=== PATIENT | male | born 1990 | race Asian ===

== ENCOUNTER 2020-12-12 06:02 | Inpatient (IN) | payer BC, SELFPAY ==
[~2020-12-12] VITALS: Ht 177.8 cm; Wt 83.5 kg
[2020-12-12 06:05] VITALS: BP_SYST 137
--- NOTE | 2020-12-12 06:05 | NUR ---
Placed in room [address] recording monitor, blood pressure machine and pulse oximeter. To gown for exam. Side rails up. Report given to VIGNESH GLEZ.
--- NOTE | 2020-12-12 06:10 | NUR ---
PT BIB ALS FROM HOME C/O OVERDOSE ON FENTANYL. PT WAS FOUND UNRESPONSIVE, APNEIC IN BED BY . PT WAS GIVEN NARCAN X2 INTRANASAL AND NARCAN 2 MORE TIMES IVP BY MEDICS WITH POSITIVE RESPONSE, INCREASED LOC/RR. PT HAS A HX OF DRUG USE. 1 DIRTY SYRINGE FOUND UNDER PATIENT, NO NEEDLE. ON ARRIVAL TO ED PT OBSERVED TO BE RESPONSIVE TO VERBAL STIMULI, LETHARGIC, DROOLING, GARBLED SPEECH, 98% RA.
--- NOTE | 2020-12-12 06:15 | NUR ---
ER at bedside examining patient.
--- NOTE | 2020-12-12 06:23 | NUR ---
Called Poison Control at [phone] and spoke with MONIKA. Per recommendations:Observe pt 4-6hrs from the last dose of Narcan .Can be clear from toxicology if pt stable after 4-6 hrs observation from the last dose of Narcan . Dr. MEREDITH notified. Will continue to monitor patient.
[2020-12-12] MEDS ORDERED: NALOXONE HCL 2 MG/2 ML SYR ONE ×2 (06:27→06:29)
--- NOTE | 2020-12-12 06:30 | NUR ---
KHARI FROM DR. MEREDITH FOR 2MG NARCAN IVP.
--- NOTE | 2020-12-12 07:04 | NUR ---
Report given to Kathrine GLEZ.
--- NOTE | 2020-12-12 07:10 | NUR ---
PT IS DROWSY BUT EASILY ARROUSABLE, AAOX3, V/S STABLE, NO NOTED DISTRESS
--- NOTE | 2020-12-12 07:15 | NUR ---
PORTABLE X-RAY AT THE BEDSIDE
--- NOTE | 2020-12-12 07:18 | NUR ---
LAB AT THE BEDSIDE FOR BLOOD DRAW
[2020-12-12 07:33] LABS: BASOPHILS # (AUTO) 0.1 K/uL (0.0-0.2); BASOPHILS % (AUTO) 0.4 % (0.0-2.0); EOSINOPHILS # (AUTO) 0.2 K/uL (0.0-0.4); EOSINOPHILS % (AUTO) 1.4 % (0.0-4.0); HEMOGLOBIN 16.7 g/dL (14.0-18.0); LYMPHOCYTES # (AUTO) 1.7 K/uL (1.0-5.5); MEAN CORPUSCULAR HEMOGLOBIN 28 pg (27-31); MEAN CORPUSCULAR HGB CONC 33 % (32-36); MEAN CORPUSCULAR VOLUME 85 fL (79.0-98.0); MONOCYTES # (AUTO) 0.8 K/uL (0.0-1.0); MONOCYTES % (AUTO) 5.2 % (1.7-9.3); NEUTROPHILS # (AUTO) 11.6 K/uL (1.8-7.7); PLATELET COUNT (AUTO) 290 K/uL (130-430); RED BLOOD CELL COUNT(AUTO) 6.02 MIL/uL (4.2-6.2); RED CELL DISTRIBUTION WIDTH 16.2 % (9.0-15.0); WHITE BLOOD COUNT (AUTO) 14.4 K/uL (4.8-10.8)
--- NOTE | 2020-12-12 07:42 | NUR ---
Patient transported to radiology via GUENEY, accompanied by STAFF.
[2020-12-12 07:46] LABS: ANION GAP 11 (5-15); CALCIUM 9.1 mg/dL (8.4-11.0); CHLORIDE 104 mmol/L (98-107); CREATININE 1.16 mg/dL (0.55-1.30); GLUCOSE 107 mg/dL (70-99); POTASSIUM 4.2 mmol/L (3.5-5.1); SODIUM SERUM 142 mmol/L (136-145); UREA NITROGEN, BLOOD 12 mg/dL (8-21)
[2020-12-12 07:47] LABS: INR 1.2 (0.80-1.20); PROTHROMBIN TIME 12.7 SECS (9.5-12.5)
[2020-12-12 07:49] LABS: GFR AFRICAN AMERICAN 95 mL/min (>90)
[2020-12-12 07:57] LABS: C-REACTIVE PROTEIN QUANT < 0.2 mg/dL (0-0.5)
[2020-12-12 08:01] LABS: ALANINE AMINOTRANSFERASE 92 U/L (12-78); ALBUMIN 3.6 g/dL (3.4-4.8); ASPARTATE AMINOTRANSFERASE 49 U/L (10-37); TOTAL BILIRUBIN 0.5 mg/dL (0.0-1.0)
[2020-12-12 08:07] LABS: ACETAMINOPHEN < 1 ug/mL (1-30); ALCOHOL, BLOOD < 3 mg/dL (<10)
[2020-12-12 08:23] LABS: ACETONE, SERUM NEGATIVE (NEGATIVE)
--- NOTE | 2020-12-12 08:26 | NUR ---
Pt asleep in [facility] at bedside
[2020-12-12 08:47] LABS: CKMB RELATIVE INDEX 0.6 (0.0-2.9); CREATINE KINASE MB 3.9 ng/mL (0-3.6)
[2020-12-12] MEDS ORDERED: D5/0.45 NS 1,000 ML IV SCH (09:00)
--- NOTE | 2020-12-12 09:06 | NUR ---
Patient will be admitted to care of [facility]. Admitted to Tele unit. Will go to room 114. Belongings list completed. Complete and up to date summary report printed. SBAR report to be given at bedside with opportunity for questions.
--- NOTE | 2020-12-12 09:25 | NUR ---
ADMISSION NOTE Received patient from ER via ar, received report from Concepcion GLEZ. Patient admitted with diagnosis of Drug overdose. Patient oriented to hospital routine, call light, toileting and safety-patient verbalized understanding.
--- NOTE | 2020-12-12 09:44 | NUR ---
CONSULTATION: REASON FOR CONSULT: OVERDOSE CONSULTING PHYSICIAN: LOIS ORDERED BY: CHEY ABREU IS AWARE OF THE CONSULT AND IS HERE IN THE HOSPITAL
--- NOTE | 2020-12-12 09:45 | NUR ---
Seen and examined by Dr. Esparza and Dr. Perdue.
--- NOTE | 2020-12-12 09:48 | NUR ---
CONSULTATION: REASON FOR CONSULT: PSYCHOSIS CONSULTING PHYSICIAN: WILNER ORDERED BY: CHEY SPOKE WITH ROBERT [phone]
[2020-12-12 09:51] VITALS: BP_SYST 140
--- NOTE | 2020-12-12 10:32 | NUR ---
Spoke to Dr. Castano informed regarding consult.
[2020-12-12 11:22] VITALS: BP_SYST 129; BP_SYST 151
--- NOTE | 2020-12-12 11:42 | NUR ---
Poison control call back Sera and update regarding patient , sleeping arousable answer question correctly vitals sign stable.
--- NOTE | 2020-12-12 12:49 | NUR ---
Patient had lunch tolerates well, cooperative , at the bedside
[2020-12-12 13:24] LABS: BILIRUBIN,URINE NEGATIVE (NEGATIVE); BLOOD, URINE NEGATIVE (NEGATIVE); CLARITY/URINE CLEAR (CLEAR); COLOR,URINE YELLOW (YELLOW); GLUCOSE,URINE NEGATIVE (NEGATIVE); KETONES,URINE NEGATIVE (NEGATIVE); LEUKOCYTE ESTERASE ,URINE NEGATIVE (NEGATIVE); NITRITE, URINE NEGATIVE (NEGATIVE); PH,URINE 7.5 (5.0-8.0); PROTEIN URINE 1+ (NEGATIVE)
[2020-12-12 13:58] LABS: BARBITURATE, URINE NEGATIVE (NEG <=200); BENZODIAZEPINE, URINE NEGATIVE (NEG <=150); METHAMPHETAMINES SCREEN,URINE POSITIVE (NEG <=500); URINE AMPHETAMINE POSITIVE (NEG <=500); URINE METHADONE POSITIVE (NEG <=200)
[2020-12-12 13:59] LABS: CANNABINOID, URINE NEGATIVE (NEG <=50); COCAINE, URINE POSITIVE (NEG <=150); OPIATE, URINE POSITIVE (NEG <=100); PHENCYCLIDINE SCREEN,URINE NEGATIVE (NEG <=25); UR TRICYCLIC ANTIDEPRESSANTS NEGATIVE (NEG <=300); URINE OXYCODONE SCREEN NEGATIVE (NEG <=100); URINE PROPOXYPHENE SCREEN NEGATIVE (NEG <=300)
[2020-12-12 14:05] LABS: BACTERIA,URINE None Seen /HPF (None Seen); MUCUS,URINE 4+ /LPF (None Seen); RBC,URINE 0-3 /HPF (0-3); WBC,URINE 0-3 /HPF (0-3)
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
--- NOTE | 2020-12-12 15:45 | NUR ---
Patient sleeping but arousable answers question telemetry NSR, denies any pain.
--- NOTE | 2020-12-12 16:16 | NUR ---
ATTENDING MD DR GUERRIER WAS CALLED, RE: TO INFORM PT WILL GO AMA AT 1800. SPOKE TO CORNELIUS.
[2020-12-12 16:28] VITALS: BP_SYST 135; BP_SYST 142
--- NOTE | 2020-12-12 16:29 | NUR ---
Spoke to Dr. Perdue and mother of the patient Myles Davis , patient verbalized he wants to go home against medical advise.
--- NOTE | 2020-12-12 16:37 | NUR ---
Repaged Dr. Perdue for anxiety
[2020-12-12] MEDS: ALPRAZolam 0.25 MG TABLET PO PRN ×2 (17:08→23:13)
--- NOTE | 2020-12-12 17:10 | NUR ---
Paged Dr. Perdue for critical lab result troponin , denies any chest pain telemetry NSR, mild anxiety , generalized bodyache.
[2020-12-12 20:00] VITALS: BP_SYST 137
[2020-12-12] MEDS ORDERED: NALOXONE HCL 0.4 MG/ML AMP (NARCAN) IVP PRN (22:00)
[2020-12-12] MEDS ORDERED: MORPHINE 2 MG/ML INJ. SYRINGE IVP PRN (22:00)
[2020-12-12] MEDS ORDERED: ACETAMINOPHEN 325 MG TABLET PO PRN (22:00)
--- NOTE | 2020-12-12 22:00 | NUR ---
HIGH ALERT NOTE: Called Dr. GUERRIER back and identified within the medical roster to verify physician authenticity.
--- NOTE | 2020-12-12 22:00 | NUR ---
PAGED DR. GUERRIER REGARDING PAIN PATIENT COMPLAINING OF "MILD HEADACHE" PAIN AND "8/[address] GUERRIER NOTIFIED - ORDERED MORPHINE 2MG Q4H PRN SEVERE PAIN, TYLENOL 650MG Q6H MILD PAIN.
[2020-12-13] VITALS: BP_SYST 132
--- NOTE | 2020-12-13 | NUR ---
ROUNDING NOTES Patient resting in bed - no s/s pain or distress noted. Respirations even and unlabored - head of bed elevated. IV site patent - no s/s redness, infection, or infiltration. Bed locked and in lowest position. Call light within reach. at bedside.
[2020-12-13 08:03] LABS: ALBUMIN 3.2 g/dL (3.4-4.8); CALCIUM 8.7 mg/dL (8.4-11.0); CREATININE 0.98 mg/dL (0.55-1.30); POTASSIUM 4.2 mmol/L (3.5-5.1); TOTAL BILIRUBIN 0.5 mg/dL (0.0-1.0)
[2020-12-13 08:15] VITALS: BP_SYST 134
[2020-12-13] MEDS ORDERED: NEU300 PO (09:44)
[2020-12-13] MEDS ORDERED: GABAPENTIN 300 MG CAPSULE PO ONE (10:00)
[2020-12-13 11:49] VITALS: BP_SYST 144
[2020-12-13 12:15] VITALS: BP_SYST 144
--- NOTE | 2020-12-13 13:01 | NUR ---
Patient given information on local detox programs and encourged to F/U with a program as soon as possible.
[2020-12-13] MEDS ORDERED: GABAPENTIN 300 MG CAPSULE PO SCH (15:00)
== END 2020-12-13 13:00 | disposition home or self-care (01) | DRG 917 ==
LOC: SED 06:02 → STU 08:55
PROVIDERS: ADMIT Internal Medicine Cardiovascular Disease; ATTEND Internal Medicine Cardiovascular Disease
DX: T40.411A Poisoning by fentanyl or fentanyl analogs, accidental (unintentional), initial encounter (principal); G93.41 Metabolic encephalopathy; I24.8 Other forms of acute ischemic heart disease; D72.829 Elevated white blood cell count, unspecified; F29 Unspecified psychosis not due to a substance or known physiological condition; Z20.822 Contact with and (suspected) exposure to COVID-19; Y92.89 Other specified places as the place of occurrence of the external cause
CPT/HCPCS: 36415; 70450-TC; 71045; 76376; 80053; 80307; 81000; 82009; 82140; 82550; 82553; 83605; 83880; 84484; 85025; 85610-TC; 85730-TC; 86140; 93005; 93306; 96374; 99285; G0378; G0480; G0481; G0482; J2310

== ENCOUNTER 2021-05-24 00:13 | Inpatient (IN) | payer BC, SELFPAY ==
[~2021-05-24] VITALS: Ht 177.8 cm; Wt 81.6 kg
[~2021-05-24 00:13] MED LIST: NEU300 PO
[2021-05-24 00:23] VITALS: BP_SYST 108
--- NOTE | 2021-05-24 00:49 | NUR ---
PT BIB [facility] AMBULANCE FOR BEING NON RESPONSIVE AND POSSIBLE OVERDOSE. PT HAS A HX OF PREVIOUS FENTANYL OD IN NOVEMBER. PT IS A&OX1. PT IS NOT ALERT OR ORIENTED BUT IS ABLE TO REPOND TO PAIN. PT IS SLOWLY GETTING MORE AWAKE.CAME WITH 18G TO LEFT AC. ON SCENE MEDICS STATED PARENTS GAVE 4 OF NARCAN IM AND MEDICS GAVE 2 OF NARCON THRU IV. PT ARRIVED WITH A BOTTLE OF "KRATOM" FILLED WITH XANAX. PTs VSS. SLEEPING NOW.
--- NOTE | 2021-05-24 01:00 | NUR ---
ER Dr. ARREDONDO at bedside examining patient.
[2021-05-24 01:19] LABS: ANION GAP 13 (5-15); CALCIUM 10.4 mg/dL (8.4-11.0); CHLORIDE 99 mmol/L (98-107); GLUCOSE 115 mg/dL (70-99); POTASSIUM 4.4 mmol/L (3.5-5.1); SODIUM SERUM 135 mmol/L (136-145); UREA NITROGEN, BLOOD 23 mg/dL (8-21)
[2021-05-24 01:23] LABS: BASOPHILS # (AUTO) 0.3 K/uL (0.0-0.2); BASOPHILS % (AUTO) 3.2 % (0.0-2.0); EOSINOPHILS # (AUTO) 0.6 K/uL (0.0-0.4); EOSINOPHILS % (AUTO) 5.4 % (0.0-4.0); HEMATOCRIT 54.6 % (36-54); HEMOGLOBIN 18.5 g/dL (14.0-18.0); LYMPHOCYTES # (AUTO) 0.9 K/uL (1.0-5.5); LYMPHOCYTES % (AUTO) 8.1 % (20.5-51.5); MEAN CORPUSCULAR HEMOGLOBIN 29 pg (27-31); MEAN CORPUSCULAR HGB CONC 34 % (32-36); MEAN CORPUSCULAR VOLUME 86 fL (79.0-98.0); MONOCYTES # (AUTO) 0.3 K/uL (0.0-1.0); MONOCYTES % (AUTO) 3.2 % (1.7-9.3); NEUTROPHILS # (AUTO) 8.4 K/uL (1.8-7.7); NEUTROPHILS % (AUTO) 80.1 % (40.0-70.0); PLATELET COUNT (AUTO) 324 K/uL (130-430); RED BLOOD CELL COUNT(AUTO) 6.38 MIL/uL (4.2-6.2); RED CELL DISTRIBUTION WIDTH 13.9 % (9.0-15.0); WHITE BLOOD COUNT (AUTO) 10.5 K/uL (4.8-10.8)
[2021-05-24 01:25] LABS: ALANINE AMINOTRANSFERASE 80 U/L (12-78); ALBUMIN 4.4 g/dL (3.4-4.8); ASPARTATE AMINOTRANSFERASE 19 U/L (10-37)
[2021-05-24 01:27] LABS: ALCOHOL, BLOOD < 3 mg/dL (<10); GFR AFRICAN AMERICAN 91 mL/min (>90)
[2021-05-24 01:28] LABS: ACETAMINOPHEN < 1 ug/mL (1-30)
--- NOTE | 2021-05-24 01:40 | NUR ---
MOTHER AT BEDSIDE
--- NOTE | 2021-05-24 01:45 | NUR ---
Called Poison Control at [phone] and spoke with JAQUAN. Per recommendations: MONITOR RESPIRATIONS AND VITALS SIGNS. Dr. ARREDONDO notified. Will continue to monitor patient.
--- NOTE | 2021-05-24 02:11 | NUR ---
PT SLEEPING IN BED.VSS. NO SIGNS OF DISTRESS NOTED
--- NOTE | 2021-05-24 02:53 | NUR ---
# 16 FR Noel catheter with use of sterile technique. Immediate return of 100 cc DARK YELLOW urine noted. Bedside drainage bag placed below level of bladder. Urine sample collected and sent to lab. Pt tolerated procedure .
[2021-05-24 03:29] LABS: CANNABINOID, URINE POSITIVE (NEG <=50); URINE AMPHETAMINE POSITIVE (NEG <=500)
[2021-05-24 03:30] LABS: BARBITURATE, URINE NEGATIVE (NEG <=200); OPIATE, URINE NEGATIVE (NEG <=100); PHENCYCLIDINE SCREEN,URINE NEGATIVE (NEG <=25); URINE OXYCODONE SCREEN NEGATIVE (NEG <=100); URINE PROPOXYPHENE SCREEN NEGATIVE (NEG <=300)
[2021-05-24 03:31] LABS: BENZODIAZEPINE, URINE POSITIVE (NEG <=150); COCAINE, URINE NEGATIVE (NEG <=150); UR TRICYCLIC ANTIDEPRESSANTS POSITIVE (NEG <=300)
[2021-05-24 03:32] LABS: METHAMPHETAMINES SCREEN,URINE POSITIVE (NEG <=500); URINE METHADONE NEGATIVE (NEG <=200)
[2021-05-24] MEDS ORDERED: NACL 0.9% 1,000 ML IV ONE (04:15)
--- NOTE | 2021-05-24 05:55 | NUR ---
PT IS FULL CODE
--- NOTE | 2021-05-24 05:56 | NUR ---
MOTHER WILL TRY AND FIND MED LIST
--- NOTE | 2021-05-24 06:01 | NUR ---
Patient will be admitted to care of DR. BRANDT. Admitted to TELE unit. Will go to room TBD. Belongings list completed. Complete and up to date summary report printed. SBAR report to be given at bedside with opportunity for questions.
--- NOTE | 2021-05-24 06:17 | NUR ---
Note avinash in EDM - 05/24/21 at 0620 by OMAREDGS PT GIVEN THE D5 1/2 NS AT 100ML/HR. UNABLE TO CHART ON MAR
[2021-05-24] MEDS: D5/0.45 NS 1,000 ML IV SCH ×2 (06:19→16:00)
[2021-05-24] MEDS ORDERED: OLAN5TAB3 PO (08:07)
[2021-05-24] MEDS ORDERED: TRAZ-251 PO (08:07)
[2021-05-24] MEDS ORDERED: OXCA150T5 PO (08:07)
[2021-05-24] MEDS ORDERED: QUET50TA15 PO (08:07)
--- NOTE | 2021-05-24 08:08 | NUR ---
Medication reconciliation completed with information provided by patient's family. Any prior medication reconciliation on file was reviewed and corrected.
--- NOTE | 2021-05-24 08:18 | NUR ---
Report given to NEWTON Louis and endorse care of patient.
--- NOTE | 2021-05-24 08:20 | NUR ---
[place] of care received, pt resting in bed, respirations even and unlabored.
--- NOTE | 2021-05-24 09:35 | NUR ---
Emptied patients fully catheter 1200 ml yellow clear urine noted
--- NOTE | 2021-05-24 09:57 | NUR ---
Patient requesting to remove his urinary catheter, urinary catheter removed at this time, no s/s of bleeding noted.
--- NOTE | 2021-05-24 10:11 | NUR ---
Assisted patient to restroom. Gait is unsteady and patient is cooperative with assistance.
--- NOTE | 2021-05-24 10:20 | NUR ---
Phone call received by Neelima (poison control ), who was notified, pt VSS, pt awake at this time, skin pink and warm, cap refill <3.
--- NOTE | 2021-05-24 11:55 | NUR ---
Dr Galvez evaluating patient at bedside
[2021-05-24] MEDS ORDERED: ONDANSETRON HCL 4 MG/2 ML VIAL IVP PRN (12:00)
[2021-05-24] MEDS ORDERED: HYDROcodone/ACETAMIN 5-325 MG TAB (NORCO/ VICODIN) PO PRN (12:00)
[2021-05-24] MEDS ORDERED: NALOXONE HCL 0.4 MG/ML AMP (NARCAN) IVP PRN ×2 (12:00)
[2021-05-24] MEDS ORDERED: LORazepam 2 MG/ML VIAL IVP PRN (12:00)
[2021-05-24] MEDS ORDERED: HYDROcodone/ACETAMIN 10-325 MG TAB PO PRN (12:00)
[2021-05-24] MEDS ORDERED: ACETAMINOPHEN 325 MG TABLET PO PRN ×2 (12:00→12:15)
--- NOTE | 2021-05-24 12:55 | NUR ---
lunch tray given to patient, mother at bedside feeding patient,will cont to monitor.
[2021-05-24] MEDS ORDERED: NORMAL SALINE 5 ML DISP.SYRIN IVF SCH ×2 (14:00)
[2021-05-24] MEDS ORDERED: GABAPENTIN 300 MG CAPSULE PO SCH (15:00)
--- NOTE | 2021-05-24 15:39 | NUR ---
Pt medicated as ordered, VSS, respirations even and unlabored , no s/s of distress.
--- NOTE | 2021-05-24 15:43 | NUR ---
PT at bedside
--- NOTE | 2021-05-24 16:30 | NUR ---
Pt pulled IV out, Pt states he does not want to be in the hospital anymore, patient coursing at this time, states " I am doing okay and he does not need to wait for any doctor "pt ambulatory, respirations even and unlabored, cap refill <3.
--- NOTE | 2021-05-24 16:40 | NUR ---
Dr Galvez notified patient would like to go home and pulled his IV out, per Dr Galvez patient will be discharge home, pt's brother at bedside, pt's mother on the way to pick patient.
--- NOTE | 2021-05-24 17:16 | NUR ---
Dr Galvez is giving a verbal discharge order at this time.
[2021-05-24 17:27] VITALS: BP_SYST 133
--- NOTE | 2021-05-24 17:42 | NUR ---
Discharge Discharge order received from MD by ER nurse. Patient is admitted to telemetry but is on hold in the ER. Discharge papers completed. Unable to re- take vitals as patient is already in the car with his mother in the parking lot. Instruction given to mother instead re S/S of respiratory depression, community resources and follow up with PCP. Mother verbalized understanding. IV access removed by NEWTON Louis
[2021-05-24 17:50] VITALS: BP_SYST 133
--- NOTE | 2021-05-24 17:51 | NUR ---
Patient given written and verbal discharge instructions and verbalizes understanding, given by Alexandria GLEZ , Alexandria GLEZ discussed with patient the results and treatment provided. Patient in stable condition. ID arm band removed. IV catheter removed intact and dressing applied, no active bleeding. No Rx given. Patient educated on pain management and to follow up with PMD. Pain Scale 0/10 . Opportunity for questions provided and answered. Medication side effect fact sheet provided.family at bedside.
[2021-05-24] MEDS ORDERED: traZODone HCL 50 MG TABLET (DESYREL) PO SCH (21:00)
[2021-05-24] MEDS ORDERED: OXcarbazepine 150 MG TABLET(TRILEPTAL) PO SCH (21:00)
[2021-05-24] MEDS ORDERED: NON-FORMULARY MEDICATION (Quetiapine Fumarate (Seroquel Xr) 50 MG) PO SCH (21:00)
[2021-05-24] MEDS ORDERED: OLANZapine 5 MG TABLET PO SCH (21:00)
== END 2021-05-24 17:42 | disposition home or self-care (01) | DRG 948 ==
LOC: SED 00:13 → STU 05:57
PROVIDERS: ADMIT Preventive Medicine Preventive Medicine/Occupational Environmental Medicine; ATTEND Preventive Medicine Preventive Medicine/Occupational Environmental Medicine
DX: R41.82 Altered mental status, unspecified (principal); E87.1 Hypo-osmolality and hyponatremia; D75.1 Secondary polycythemia; F32.A Depression, unspecified; R73.9 Hyperglycemia, unspecified; R74.01 Elevation of levels of liver transaminase levels; Z20.822 Contact with and (suspected) exposure to COVID-19; T40.2X5A Adverse effect of other opioids, initial encounter; Y92.89 Other specified places as the place of occurrence of the external cause
CPT/HCPCS: 36415; 80053; 80307; 82550; 84484; 85025; 93005; 96360; 96361; 97116-GP; 99291; G0378; G0480; G0481; G0482

== ENCOUNTER 2021-05-27 14:35 | Emergency (ER) | payer BC, SELFPAY ==
[~2021-05-27] VITALS: Ht 167.6 cm; Wt 81.6 kg
[~2021-05-27 14:35] MED LIST changes: +OLAN5TAB3 PO; +OXCA150T5 PO; +QUET50TA15 PO; +TRAZ-251 PO
[2021-05-27 14:38] VITALS: BP_SYST 130
[2021-05-27] MEDS ORDERED: ONDANSETRON HCL 4 MG/2 ML VIAL IVP ONE (14:45)
--- NOTE | 2021-05-27 15:08 | NUR ---
PT AROUSABLE TO VERBAL COMMANDS REFUSES BLOOD TO BE DRAWN BY INTENSIVE CARE UNIT NURSE CN AWARE
--- NOTE | 2021-05-27 15:22 | NUR ---
blood to lab
[2021-05-27 15:32] LABS: BASOPHILS % (AUTO) 0.5 % (0.0-2.0); EOSINOPHILS # (AUTO) 0.1 K/uL (0.0-0.4); EOSINOPHILS % (AUTO) 0.7 % (0.0-4.0); HEMATOCRIT 53.7 % (36-54); HEMOGLOBIN 18.6 g/dL (14.0-18.0); LYMPHOCYTES # (AUTO) 1.7 K/uL (1.0-5.5); MEAN CORPUSCULAR HEMOGLOBIN 29 pg (27-31); MEAN CORPUSCULAR HGB CONC 35 % (32-36); MEAN CORPUSCULAR VOLUME 85 fL (79.0-98.0); MONOCYTES # (AUTO) 0.7 K/uL (0.0-1.0); MONOCYTES % (AUTO) 7.2 % (1.7-9.3); NEUTROPHILS % (AUTO) 73.6 % (40.0-70.0); PLATELET COUNT (AUTO) 325 K/uL (130-430); RED BLOOD CELL COUNT(AUTO) 6.36 MIL/uL (4.2-6.2); RED CELL DISTRIBUTION WIDTH 13.6 % (9.0-15.0); WHITE BLOOD COUNT (AUTO) 9.5 K/uL (4.8-10.8)
[2021-05-27 15:49] LABS: ANION GAP 13 (5-15); CHLORIDE 100 mmol/L (98-107); CREATININE 1.05 mg/dL (0.55-1.30); GLUCOSE 93 mg/dL (70-99); POTASSIUM 4.2 mmol/L (3.5-5.1); SODIUM SERUM 138 mmol/L (136-145); UREA NITROGEN, BLOOD 17 mg/dL (8-21)
[2021-05-27 15:50] LABS: GFR AFRICAN AMERICAN 107 mL/min (>90)
[2021-05-27 15:55] LABS: ALANINE AMINOTRANSFERASE 102 U/L (12-78); ALBUMIN 4.5 g/dL (3.4-4.8); ASPARTATE AMINOTRANSFERASE 31 U/L (10-37); TOTAL BILIRUBIN 0.7 mg/dL (0.0-1.0)
--- NOTE | 2021-05-27 15:57 | NUR ---
FAMILY MEMBER AT BEDSIDE SPEAKING WITH PATIENT
[2021-05-27 16:10] LABS: ACETAMINOPHEN < 1 ug/mL (1-30)
--- NOTE | 2021-05-27 16:52 | NUR ---
PT A LIITLE MORE LUCID STATES THAT HE IS GOING THROUGH A DIVORCE AND HE DRINKS AND SELF MEDICATES TO RELIEVE THE PAIN . PT DENIES HI AND SI. URINE TO LAB. WILL REVALUATE WHEN PT IS MORE LUCID
--- NOTE | 2021-05-27 16:58 | NUR ---
PT RAPHAEL TOUSSAINT MD AWARE
[2021-05-27] MEDS ORDERED: HALOPERIDOL LACTATE 5 MG/ML VIAL IVP ONE (17:00)
[2021-05-27] MEDS ORDERED: NACL 0.9% 1,000 ML IV ONE (17:00)
[2021-05-27] MEDS ORDERED: HALOPERIDOL LACTATE 5 MG/ML VIAL ONE (17:01)
--- NOTE | 2021-05-27 17:07 | NUR ---
IVF RUNNING MEDICATED WITH HALDOL IV. MOTHER AT BEDSIDE
[2021-05-27 18:00] LABS: BILIRUBIN,URINE NEGATIVE (NEGATIVE); BLOOD, URINE NEGATIVE (NEGATIVE); CLARITY/URINE CLEAR (CLEAR); COLOR,URINE YELLOW (YELLOW); GLUCOSE,URINE NEGATIVE (NEGATIVE); KETONES,URINE 1+ (NEGATIVE); LEUKOCYTE ESTERASE ,URINE NEGATIVE (NEGATIVE); NITRITE, URINE NEGATIVE (NEGATIVE); PROTEIN URINE NEGATIVE (NEGATIVE); UROBILINOGEN,URINE 0.2 (0.2-1.0)
[2021-05-27 18:36] LABS: BARBITURATE, URINE NEGATIVE (NEG <=200)
[2021-05-27 18:37] LABS: BENZODIAZEPINE, URINE POSITIVE (NEG <=150); CANNABINOID, URINE POSITIVE (NEG <=50); COCAINE, URINE NEGATIVE (NEG <=150); METHAMPHETAMINES SCREEN,URINE POSITIVE (NEG <=500); OPIATE, URINE NEGATIVE (NEG <=100); PHENCYCLIDINE SCREEN,URINE NEGATIVE (NEG <=25); UR TRICYCLIC ANTIDEPRESSANTS NEGATIVE (NEG <=300); URINE AMPHETAMINE POSITIVE (NEG <=500); URINE METHADONE NEGATIVE (NEG <=200); URINE OXYCODONE SCREEN NEGATIVE (NEG <=100); URINE PROPOXYPHENE SCREEN NEGATIVE (NEG <=300)
--- NOTE | 2021-05-27 19:01 | NUR ---
REPORT TO CL
--- NOTE | 2021-05-27 19:32 | NUR ---
patient sleeping in [facility]. chest rise and fall noted.
--- NOTE | 2021-05-27 21:40 | NUR ---
MOTHER AT BEDSIDE FEEDING PATIENT.
--- NOTE | 2021-05-27 21:50 | NUR ---
Patients mother requesting trazodone for patient. Patient seen sleeping in bed. chest rise and fall noted.
--- NOTE | 2021-05-27 22:07 | NUR ---
PATIENT ASLEEP IN BED. CHEST RISE AND FALL NOTED. MOTHER SLEEPING ON THE FLOOR.
--- NOTE | 2021-05-28 00:52 | NUR ---
PATIENT AWAKE AND STANDING WITH MOTHER AT SIDE TO THE RESTROOM.
--- NOTE | 2021-05-28 00:59 | NUR ---
PATIENT RETURNED TO BEDROOM WITH STEADY GAIT. MOTHER AT BEDSIDE FEEDING PATIENT.
--- NOTE | 2021-05-28 01:55 | NUR ---
notified patient requesting sleeping medication
--- NOTE | 2021-05-28 02:43 | NUR ---
patient complaining of shortness of breath. Patient is requesting Vistaril. Patient is able to speak full sentences. No acute distress noted. VSMitesh. notified.
--- NOTE | 2021-05-28 03:09 | NUR ---
report given to NEWTON Rice
--- NOTE | 2021-05-28 04:20 | NUR ---
Patient resting quietly. No acute distress noted. Vital signs within normal range. RESPIRATIONS EVEN AND UNLABORED.
--- NOTE | 2021-05-28 05:30 | NUR ---
PT STANDING AND WALKING AROUND IN THE ROOM. MOTHER AT BEDSIDE WITH SON.
--- NOTE | 2021-05-28 06:48 | NUR ---
PT SLEEPING AT THIS TIME. MOTHER ASLEEP AT BEDSIDE. NOTIFIED MOTHER PSYCHIATRIC MD WILL ARRIVE IN THE MORNING. VSS. DENIES ANY PAIN AT THIS TIME.
--- NOTE | 2021-05-28 07:09 | NUR ---
report given to NEWTON Mojica to assume all care of pt.
--- NOTE | 2021-05-28 07:27 | NUR ---
Dr. Perez called back to notify he is coming within 30 minutes to evaluate pt.
--- NOTE | 2021-05-28 08:15 | NUR ---
assessment done POC for today reviewed pt states feels much better, awaiting eval from Dr. Harris
--- NOTE | 2021-05-28 08:20 | NUR ---
at bedside to see patient.
[2021-05-28 09:51] VITALS: BP_SYST 120
--- NOTE | 2021-05-28 09:52 | NUR ---
Patient and patients mom given written and verbal discharge instructions and verbalizes understanding. Dr. Christy and Dr. Hoskins discussed with patient the results and treatment provided. Patient in stable condition. ID arm band removed. IV catheter removed intact and dressing applied, no active bleeding. Rx of Zyprexa, benadryl, and Vistaril given. Patient educated on pain management and to follow up with PMD and Dr. Hoskins. Pain Scale 0. Opportunity for questions provided and answered. Medication side effect fact sheet provided.
== END 2021-05-28 09:52 | disposition home or self-care (01) ==
LOC: SED 14:35
DX: T42.4X1A Poisoning by benzodiazepines, accidental (unintentional), initial encounter (principal); Z20.822 Contact with and (suspected) exposure to COVID-19; Z79.899 Other long term (current) drug therapy; Y92.89 Other specified places as the place of occurrence of the external cause
CPT/HCPCS: 36415; 80053; 80307; 81003; 85025; 87426; 93005; 96361; 96374; 96375; 99285; G0480; G0481; G0482; J1630; J7030